=== PATIENT | female | born 1985 | race Caucasian/White ===

== ENCOUNTER → 2016-11-06 | Outpatient (CLI) | payer OTHER ==
[~2016-11-06] MED LIST: ADVIN25/60 INH; CEPH500C PO; CLR10 PO; DILT120T8 PO; EPP3/2 IM; FIBE1CHW PO; JNL12021 PO; MONT1TAB3 PO; PREN0.12 PO
== END | disposition home or self-care (01) ==
LOC: C.PAPS 15:15
PROVIDERS: ATTEND Obstetrics & Gynecology
DX: Z34.81 Encounter for supervision of other normal pregnancy, first trimester (principal)

== ENCOUNTER → 2016-11-07 | Outpatient (CLI) | payer OTHER ==
[2016-11-10 01:58] LABS: CHLAMYDIA TRACH RNA*** NOT DETECTED (NOT DETECTED); GC (NEIS GONORRHOEAE)RNA** NOT DETECTED (NOT DETECTED)
== END | disposition home or self-care (01) ==
LOC: C.LABSPEC 15:04
PROVIDERS: ATTEND Obstetrics & Gynecology
DX: Z34.01 Encounter for supervision of normal first pregnancy, first trimester (principal)

== ENCOUNTER → 2016-11-26 | Outpatient (CLI) | payer OTHER | END | disposition home or self-care (01) | LOC: C.LABSPEC 14:57 | PROVIDERS: ATTEND Obstetrics & Gynecology | DX: O99.511 Diseases of the respiratory system complicating pregnancy, first trimester (principal); J02.9 Acute pharyngitis, unspecified ==

== ENCOUNTER → 2017-01-07 | Outpatient (CLI) | payer OTHER ==
[2017-01-07 12:20] LABS: BASO % 0.2 %; BASO ABS # 0.02 K/uL (0-0.2); COMPLETE YES; HEMATOCRIT 41.4 % (37-47); IG% 0.3 %; LYMPH % 21.3 %; LYMPH ABS # 2.55 K/uL (1.2-3.4); MEAN CELL VOLUME 88.5 fL (80-100); MEAN CORPUSCULAR HEMOGLOBIN 28.8 pg (25-34); MEAN CORPUSCULAR HGB CONC 32.6 g/dl (32-36); MEAN PLATELET VOLUME 8.7 fL (7.4-10.4); NEUT % 72.2 %; PLATELET COUNT 449 K/uL (130-400); RED BLOOD COUNT 4.68 M/uL (4.2-5.4)
[2017-01-07 14:13] LABS: GTGD 50 Grams
[2017-01-09 14:24] LABS: AFP CONCENTRATION 37.8 NG/ML; AFP MULTIPLE OF MEDIAN 1.24; AFPTS INSULIN DEP DIABETIC? NO; AFPTS MATERNAL WT 164 LBS; ALPHA-FETOPROTEIN RACE CAUCASIAN=W; EDD DETERMINED BY ULTRASOUND; ESTRIOL MULTIPLE OF MEDIAN 0.97; HISTORY OF NTD NO; INHIBIN A 137 PG/ML; INHIBIN A MOM 0.83; REPEAT SAMPLE? NO; hCG MULTIPLE OF MEDIAN 0.29
== END | disposition home or self-care (01) ==
LOC: C.LAB 10:24
PROVIDERS: ATTEND Obstetrics & Gynecology
DX: Z34.02 Encounter for supervision of normal first pregnancy, second trimester (principal)

== ENCOUNTER → 2017-01-15 | Outpatient (CLI) | payer OTHER | END | disposition home or self-care (01) | LOC: C.LAB 07:51 | PROVIDERS: ATTEND Obstetrics & Gynecology | DX: O99.810 Abnormal glucose complicating pregnancy (principal) ==

== ENCOUNTER 2017-01-24 00:14 | Emergency (ER) | payer OTHER ==
[~2017-01-24] VITALS: Ht 165.1 cm; Wt 75.0 kg
[~2017-01-24 00:14] MED LIST changes: -CEPH500C PO; -CLR10 PO; -EPP3/2 IM; -FIBE1CHW PO; -PREN0.12 PO
[2017-01-24 00:17] VITALS: TEMP 36.7; Ht 165.1 cm; Wt 75.0 kg
[2017-01-24] MEDS ORDERED: ACETAMINOPHEN 500 MG TAB PO STA (00:30)
[2017-01-24 01:49] VITALS: BP 134/96; PULSE 98; O2SAT 96
--- NOTE | 2017-01-24 02:24 | EMERGENCY ROOM VISIT NOTE ---
History First contact with patient: 00:21 Chief Complaint: LEG PAIN,LEG INJURY Stated Complaint: LEG PAIN IN RIGHT History of Present Illness The patient is a 31 year old female who presents to the Emergency Room with complaints of right thigh pain for the past day who is currently 18 weeks . Patient denies chest pain, dyspnea, Tingling, injury to the area, hip pain, redness, swelling. Patient states her is going well. No history DVT or PE. No recent travel. She does not smoke. Review of Systems See HPI for pertinent positives & negatives. A total of 10 systems reviewed and were otherwise negative. Past Medical/Surgical History None Social History Smoking Status: Never Smoker Smokeless Tobacco Use: No Drug Use: none Marital Status: Housing Status: lives with family Occupation Status: employed Current/Historical Medications Scheduled Diltiazem Hcl (Cardizem), 120 MG PO BID Ethinyl Estradiol/Norethindr (Junel 09/21), 1 TAB PO DAILY Fluticasone Prop/Salmeterol (Advair Diskus 250/50 60 Dose), 1 PUFF INH BID Montelukast Sodium (Singulair), 10 MG PO DAILY Allergies Coded Allergies: Yellow Jacket (Unverified Allergy, Severe, HIVES, 03/08/16) HAS EPI PEN Physical Exam Vital Signs Date Time Temp Pulse Resp B/P Pulse Ox O2 Delivery O2 Flow Rate FiO2 01/24/17 01:49 98 18 134/96 96 Room Air 01/24/17 00:17 36.7 106 20 147/87 99 Room Air Physical Exam VITALS: Vitals are noted on the nurse's note and reviewed by myself. Vital signs stable. GENERAL: Pleasant female, in no acute distress, nondiaphoretic, well-developed well-nourished. SKIN: Capillary reflex less than 2 seconds. HEENT: Normocephalic. PERRLA. EOMI. Nares patent. Mucous membranes moist. Neck is supple without nuchal rigidity. HEART: Regular rate and rhythm without murmurs gallops or rubs. LUNGS: Clear to auscultation bilaterally without wheezes, rales or rhonchi. No retractions or accessory muscle use. ABDOMEN: Positive bowel sounds x 4. Normal tympanic percussion. Soft, nontender, 18 weeks , without masses or organomegaly. Aleman sign negative. No guarding or rebound tenderness. MUSCULOSKELETAL: No gross musculoskeletal defects. No pedal edema. No calf tenderness. Right thigh minimally tender to palpation without redness or edema NEURO: Patient was alert and oriented to person place and time. Normal sensation to light and sharp touch. No focal neurological deficits. Medical Decision & Procedures Medications Administered Medications (Trade) Dose Ordered Sig/Dangelo Route Start Time Stop Time Status Last Admin Dose Admin Acetaminophen (Tylenol Tab) 1,000 mg NOW STAT PO 01/24/17 00:30 01/24/17 00:32 DC 01/24/17 00:35 1,000 MG ED Course Prior records reviewed and summarized above. Triage Nursing notes reviewed. Additional history obtained from the family. The patient's history was concerning for swelling and pain in the leg. Differential diagnosis: Etiologies such as DVT, musculoskeletal, infection, joint effusion, trauma, lymphedema, idiopathic, CHF, as well as others were entertained.. Physical examination: The physical examination revealed no signs of infection. Neurovascularly intact. ER treatment provided: Tylenol On reassessment the patient felt better. Diagnostics interpreted by me: Imaging studies: Ultrasound negative for DVT This appears to be consistent with thigh pain with unclear etiology. This could be muscle strain. Patient was advised to stretch the area out and take Tylenol for the pain. She is advised to follow-up family care in a few days or here in the ER sooner for severe pain, numbness, tingling, chest pain, worsening signs or symptoms or as needed.. By the evaluation outlined above emergent etiologies such as DVT, septic joint, trauma, infection, CHF, as well as others were deemed relatively unlikely. The pt informed about the findings as listed above. All questions were answered and pleased with the treatment. Return instructions were outlined and the patient was discharged in stable condition. Referral: The patient was referred back to their primary care physician for follow-up in 2 to 3 days for a recheck of the current condition. Medical Decision As above Impression Primary Impression: Leg pain, right Departure Information Dispostion Home / Self-Care Condition GOOD Referrals Kieran Sanon M.D. (PCP) Forms HOME CARE DOCUMENTATION FORM, IMPORTANT VISIT INFORMATION Patient Instructions [facility] Additional Instructions Acetaminophen(Tylenol) may be used for fever or pain. Use 1000mg every six hours as needed. Avoid using more than 3000mg in a 24 hour period. Rest and drink plenty of fluids as tolerated. Continue current medications. Avoid strenuous activities and anything that worsens your pain. Try heating pad to the area and stretch the area out. Return to the ER immediately for worsening or persistent leg pain, abdominal pain, vomiting, fevers, chest pains, difficulty breathing, worsening of your condition, or as needed. Follow up with your primary physician in 2-3 days for a recheck of your current condition.
--- NOTE | 2017-01-24 07:18 | DIAGNOSTIC IMAGING REPORT ---
RIGHT LOWER EXTREMITY VENOUS DOPPLER HISTORY: righth thigh pain, ? DVT Right COMPARISON STUDY: None. FINDINGS: There is normal compressibility, flow, and augmentation within the right lower extremity deep venous system. IMPRESSION: No DVT within the right lower extremity Electronically signed by: Stanley Matthews M.D. 01/24/2017 7:17 AM Dictated Date/Time: 01/24/2017 7:17 AM
== END 2017-01-24 02:18 | disposition home or self-care (01) ==
LOC: C.EDB 00:15
DX: O26.892 Other specified pregnancy related conditions, second trimester (principal); M79.651 Pain in right thigh; Z79.899 Other long term (current) drug therapy; Z91.09 Other allergy status, other than to drugs and biological substances

== ENCOUNTER 2017-03-31 15:24 | Emergency (ER) | payer OTHER ==
[~2017-03-31] VITALS: Ht 165.1 cm; Wt 83.9 kg
[2017-03-31 15:28] VITALS: TEMP 36.7; Ht 165.1 cm; Wt 83.9 kg
[2017-03-31] MEDS ORDERED: PREN0.12 PO (15:56)
[2017-03-31] MEDS ORDERED: FIBE1CHW PO (15:56)
[2017-03-31] MEDS ORDERED: CLR10 PO (15:56)
[2017-03-31] MEDS ORDERED: EPP3/2 IM (15:56)
--- NOTE | 2017-03-31 16:10 | DIAGNOSTIC IMAGING REPORT ---
CHEST ONE VIEW PORTABLE CLINICAL HISTORY: SOB, 6 mo Kyle dyspnea COMPARISON STUDY: 12/14/2015 FINDINGS: The bones soft tissues and hemidiaphragms are normal. The cardiomediastinal silhouette is normal. The lungs are clear. The pulmonary vasculature is normal. IMPRESSION: Negative chest. The above report was generated using voice recognition software. It may contain grammatical, syntax or spelling errors. Electronically signed by: Shashank Cervantes M.D. 03/31/2017 4:08 PM Dictated Date/Time: 03/31/2017 4:08 PM
[2017-03-31 16:26] VITALS: O2SAT 96
[2017-03-31 16:36] LABS: HEMATOCRIT 34.6 % (37-47); MEAN CELL VOLUME 86.3 fL (80-100); MEAN CORPUSCULAR HEMOGLOBIN 29.7 pg (25-34); MEAN CORPUSCULAR HGB CONC 34.4 g/dl (32-36); MEAN PLATELET VOLUME 8.4 fL (7.4-10.4); PLATELET COUNT 383 K/uL (130-400); RED BLOOD COUNT 4.01 M/uL (4.2-5.4); WHITE BLOOD COUNT 23.49 K/uL (4.8-10.8)
[2017-03-31 16:42] LABS: URINE APPEARANCE CLOUDY (CLEAR); URINE BILIRUBIN NEG (NEG); URINE COLOR YELLOW; URINE EPITHELIAL CELL AUTO >30 /lpf (0-5); URINE NITRITE NEG (NEG); URINE SPECIFIC GRAVITY 1.015 (1.000-1.030); UROBILINOGEN NEG (NEG)
[2017-03-31 16:48] LABS: MANUAL MICROSCOPIC REQUIRED? NO; REVIEW REQ? YES
[2017-03-31 16:53] LABS: ALT/SGPT 20 U/L (12-78); BLOOD UREA NITROGEN 6 mg/dl (7-18); CALCIUM 8.1 mg/dl (8.5-10.1); CARBON DIOXIDE 24 mmol/L (21-32); CHLORIDE 106 mmol/L (98-107); CREATININE 0.55 mg/dl (0.60-1.20); GLUCOSE 118 mg/dl (70-99); POTASSIUM 3.6 mmol/L (3.5-5.1); SODIUM 140 mmol/L (136-145)
[2017-03-31 16:56] LABS: BASO % 0.1 %; BASO ABS # 0.03 K/uL (0-0.2); COMPLETE YES; EOS % 0.3 %; IG% 0.3 %; LYMPH % 8.3 %; LYMPH ABS # 1.95 K/uL (1.2-3.4); MONO % 3.6 %; NEUT % 87.4 %
[2017-03-31 16:58] LABS: ALB/GLOB RATIO 0.5 (0.9-2); ALKALINE PHOSPHATASE 145 U/L (45-117); AST/SGOT 13 U/L (15-37)
--- NOTE | 2017-03-31 18:08 | DIAGNOSTIC IMAGING REPORT ---
VENOUS DOPPLER LW EXT BILAT HISTORY: Pain. Edema. SOB, LE swelling. 6 mo Kyle COMPARISON STUDY: None. FINDINGS: There is normal compressibility, flow, and augmentation within the bilateral lower extremity deep venous systems. IMPRESSION: No DVT within the right or left lower extremity. The above report was generated using voice recognition software. It may contain grammatical, syntax or spelling errors. Electronically signed by: Shashank Cervantes M.D. 03/31/2017 6:07 PM Dictated Date/Time: 03/31/2017 6:07 PM
--- NOTE | 2017-03-31 18:57 | DIAGNOSTIC IMAGING REPORT ---
(CHEST FOR PE) ANGIO WITH CT DOSE: 320.24 mGy.cm HISTORY: Chest pain dyspnea TECHNIQUE: Multiaxial CT images of the chest were performed following the intravenous administration of contrast to evaluate the pulmonary arteries. Maximal intensity projection images were also obtained. A dose lowering technique was utilized adhering to the principles of ALARA. COMPARISON STUDY: None. FINDINGS: There is a normal caliber thoracic aorta with no evidence for dissection. There is no evidence for pulmonary embolus. No pleural effusions. No pneumothorax. The liver and spleen are unremarkable. No mediastinal or hilar lymphadenopathy. The central airways are patent. The lungs are clear. IMPRESSION: No evidence for pulmonary embolus. The lungs are clear. The above report was generated using voice recognition software. It may contain grammatical, syntax or spelling errors. Electronically signed by: Shashank Cervantes M.D. 03/31/2017 6:56 PM Dictated Date/Time: 03/31/2017 6:55 PM
[2017-03-31] MEDS ORDERED: OPTIRAY 320 IV PRN (19:00)
[2017-03-31] MEDS ORDERED: CEPH500C PO (19:37)
[2017-03-31] MEDS ORDERED: SODIUM CHLORIDE 0.9% 1000ML 1,000 ML IV STA (19:39)
[2017-03-31] MEDS ORDERED: ALBUTEROL HFA 8 GM INHALER INH ONE (19:45)
[2017-03-31] MEDS ORDERED: CEPHALEXIN 500MG HOME PACK 1 EA BTL PO ONE (19:45)
[2017-03-31 19:54] VITALS: BP 128/76; PULSE 89; O2SAT 97
--- NOTE | 2017-03-31 20:52 | EMERGENCY ROOM VISIT NOTE ---
History Report prepared by Korey: Bing Ford Under the Supervision of: Dr. Douglas Ramos M.D. First contact with patient: 15:40 Chief Complaint: RESPIRATORY PROBLEMS Stated Complaint: SHORT OF BREATH,6 MONTHS History of Present Illness The patient is a 32 year old female who presents to the Emergency Room with complaints of persistent respiratory problems for the past 3 to 4 hours. She is accompanied by her . She complains of a cough, sore throat and "raspy" sounding voice that started around noon today. She states her coughing fits can cause her to feel short of breath. A cough drop has provided no relief. The patient is currently 6 months but has experienced no bleeding or fluid leakage. She can still feel the baby moving around. She reports the only daily medication she takes is Claritin for seasonal allergies. The patient notes she was recently around sick infants for a conference, and may have caught something from one of the babies. Pt denies LOC, headache, fevers, chills, diaphoresis, visual changes, neck pain, chest pain, nausea, vomiting, abdominal pain, back pain, melena, hematochezia, urinary symptoms, numbness, weakness, lymphadenopathy, rash, or other complaints. Source of History: patient Onset: 3 to 4 hours [employer] Position: chest Quality: other (respiratory problems) Timing: other (persistent) Modifying Factors (Worsening): other (recent exposure to sick children) Modifying Factors (Relieving): other (cough drop) Associated Symptoms: + sorethroat, + cough, + SOB Review of Systems See HPI for pertinent positives and negatives. A total of ten systems were reviewed and were otherwise negative. Past Medical & Surgical Medical Problems: (1) Seasonal allergies Family History Heart disease Social History Smoking Status: Never Smoker Alcohol Use: occasionally Drug Use: none Marital Status: Housing Status: lives with family Occupation Status: employed Current/Historical Medications Scheduled Cephalexin Monohydrate (Keflex), 500 MG PO QID Fiber (Fiber Select Gummies), 2 TABS PO DAILY Loratadine (Claritin), 10 MG PO DAILY Vit W/ Ferrous Fumara (), 1 TAB PO DAILY Scheduled PRN Epinephrine (Epipen), 0.3 MG IM UD PRN for ALLERGIC REACTION Allergies Coded Allergies: Yellow Jacket (Unverified Allergy, Severe, HIVES, 01/24/17) HAS EPI PEN Diltiazem (Verified Allergy, Intermediate, Hives, 03/31/17) Physical Exam Vital Signs Date Time Temp Pulse Resp B/P (MAP) Pulse Ox O2 Delivery O2 Flow Rate FiO2 03/31/17 19:54 89 128/76 97 Room Air 03/31/17 19:54 89 20 128/76 97 03/31/17 18:35 100 20 128/76 97 Room Air 03/31/17 16:31 97 Room Air 03/31/17 16:26 96 Room Air 03/31/17 16:26 96 Room Air 03/31/17 15:28 36.7 121 22 106/66 96 Room Air Physical Exam GENERAL: Patient is awake, alert, well-appearing, in no distress with a hoarse sounding voice. HENT: Normocephalic, atraumatic. Oropharynx unremarkable. EYES: Normal conjunctiva. Sclera non-icteric. NECK: Supple. No nuchal rigidity. FROM. No JVD. RESPIRATORY: Clear to auscultation. CARDIAC: Tachycardic heart rate, normal rhythm. Extremities warm and well perfused. Pulses equal. ABDOMEN: Gravid abdomen. No tenderness to palpation. No rebound or guarding. No masses. RECTAL: Deferred. MUSCULOSKELETAL: Chest examination reveals no tenderness. The back is symmetrical on inspection without obvious abnormality. There is no CVA tenderness to palpation. No joint edema. LOWER EXTREMITIES: Calves are equal size bilaterally and non-tender. No edema. No discoloration. NEURO: Normal sensorium. No sensory or motor deficits noted. SKIN: No rash or jaundice noted. Medical Decision & Procedures ER Provider Diagnostic Interpretation: Radiology results as stated below per my review and radiologist interpretation: CHEST ONE VIEW PORTABLE CLINICAL HISTORY: SOB, 6 mo Kyle dyspnea COMPARISON STUDY: 12/14/2015 FINDINGS: The bones soft tissues and hemidiaphragms are normal. The cardiomediastinal silhouette is normal. The lungs are clear. The pulmonary vasculature is normal. IMPRESSION: Negative chest. The above report was generated using voice recognition software. It may contain grammatical, syntax or spelling errors. Electronically signed by: Shashank Cervantes M.D. 03/31/2017 4:08 PM VENOUS DOPPLER LW EXT BILAT HISTORY: Pain. Edema. SOB, LE swelling. 6 mo Kyle COMPARISON STUDY: None. FINDINGS: There is normal compressibility, flow, and augmentation within the bilateral lower extremity deep venous systems. IMPRESSION: No DVT within the right or left lower extremity. The above report was generated using voice recognition software. It may contain grammatical, syntax or spelling errors. Electronically signed by: Shashank Cervantes M.D. 03/31/2017 6:07 PM (CHEST FOR PE) ANGIO WITH CT DOSE: 320.24 mGy.cm HISTORY: Chest pain dyspnea TECHNIQUE: Multiaxial CT images of the chest were performed following the intravenous administration of contrast to evaluate the pulmonary arteries. Maximal intensity projection images were also obtained. A dose lowering technique was utilized adhering to the principles of ALARA. COMPARISON STUDY: None. FINDINGS: There is a normal caliber thoracic aorta with no evidence for dissection. There is no evidence for pulmonary embolus. No pleural effusions. No pneumothorax. The liver and spleen are unremarkable. No mediastinal or hilar lymphadenopathy. The central airways are patent. The lungs are clear. IMPRESSION: No evidence for pulmonary embolus. The lungs are clear. The above report was generated using voice recognition software. It may contain grammatical, syntax or spelling errors. Electronically signed by: Shashank Cervantes M.D. 03/31/2017 6:56 PM Laboratory Results 03/31/17 16:20 Red Blood Count 4.01, Mean Corpuscular Volume 86.3, Mean Corpuscular Hemoglobin 29.7, Mean Corpuscular Hemoglobin Concent 34.4, Mean Platelet Volume 8.4, Neutrophils (%) (Auto) 87.4, Lymphocytes (%) (Auto) 8.3, Monocytes (%) (Auto) 3.6, Eosinophils (%) (Auto) 0.3, Basophils (%) (Auto) 0.1, Neutrophils # (Auto) 20.52, Lymphocytes # (Auto) 1.95, Monocytes # (Auto) 0.85, Eosinophils # (Auto) 0.06, Basophils # (Auto) 0.03 03/31/17 16:20 Test 03/31/17 16:20 White Blood Count 23.49 K/uL (4.8-10.8) Red Blood Count 4.01 M/uL (4.2-5.4) Hemoglobin 11.9 g/dL (12.0-16.0) Hematocrit 34.6 % (37-47) Mean Corpuscular Volume 86.3 fL (80-100) Mean Corpuscular Hemoglobin 29.7 pg (25-34) Mean Corpuscular Hemoglobin Concent 34.4 g/dl (32-36) Platelet Count 383 K/uL (130-400) Mean Platelet Volume 8.4 fL (7.4-10.4) Neutrophils (%) (Auto) 87.4 % Lymphocytes (%) (Auto) 8.3 % Monocytes (%) (Auto) 3.6 % Eosinophils (%) (Auto) 0.3 % Basophils (%) (Auto) 0.1 % Neutrophils # (Auto) 20.52 K/uL (1.4-6.5) Lymphocytes # (Auto) 1.95 K/uL (1.2-3.4) Monocytes # (Auto) 0.85 K/uL (0.11-0.59) Eosinophils # (Auto) 0.06 K/uL (0-0.5) Basophils # (Auto) 0.03 K/uL (0-0.2) RDW Standard Deviation 40.9 fL (36.4-46.3) RDW Coefficient of Variation 12.9 % (11.5-14.5) Immature Granulocyte % (Auto) 0.3 % Immature Granulocyte # (Auto) 0.08 K/uL (0.00-0.02) Red Blood Cell Morphology Unremarkable Urine Color YELLOW Urine Appearance CLOUDY (CLEAR) Urine pH 7.0 (4.5-7.5) Urine Specific [place] 1.015 (1.000-1.030) Urine Protein NEG (NEG) Urine Glucose (UA) NEG (NEG) Urine Ketones 2+ (NEG) Urine Occult Blood NEG (NEG) Urine Nitrite NEG (NEG) Urine Bilirubin NEG (NEG) Urine Urobilinogen NEG (NEG) Urine Leukocyte Esterase SMALL (NEG) Urine WBC (Auto) 5-10 /hpf (0-5) Urine RBC (Auto) 0-4 /hpf (0-4) Urine Hyaline Casts (Auto) 1-5 /lpf (0-5) Urine Epithelial Cells (Auto) >30 /lpf (0-5) Urine Bacteria (Auto) 2+ (NEG) Urine Pathogenic Casts /lpf (0) Anion Gap 10.0 mmol/L (3-11) Est Creatinine Clear Calc Drug Dose 158.5 ml/min Estimated GFR () 144.9 Estimated GFR (Non- 125.0 BUN/Creatinine Ratio 10.0 (10-20) Calcium Level 8.1 mg/dl (8.5-10.1) Total Bilirubin 0.3 mg/dl (0.2-1) Aspartate Amino Transf (AST/SGOT) 13 U/L (15-37) Alanine Aminotransferase (ALT/SGPT) 20 U/L (12-78) Alkaline Phosphatase 145 U/L (45-117) Troponin I < 0.015 ng/ml (0-0.045) Pro-B-Type Natriuretic Peptide 147 pg/ml (0-450) Total Protein 6.8 gm/dl (6.4-8.2) Albumin 2.4 gm/dl (3.4-5.0) Globulin 4.4 gm/dl (2.5-4.0) Albumin/Globulin Ratio 0.5 (0.9-2) Laboratory results reviewed by me Medications Administered Medications (Trade) Dose Ordered Sig/Dangelo Route Start Time Stop Time Status Last Admin Dose Admin Cephalexin Monohydrate (Keflex 500MG Home Pack) 1 homepack NOW ONCE PO 03/31/17 19:45 03/31/17 19:46 DC 03/31/17 19:48 1 HOMEPACK Albuterol (Ventolin Hfa Inhaler) 2 puffs NOW ONCE INH 03/31/17 19:45 03/31/17 19:46 DC 03/31/17 19:48 2 PUFFS Sodium Chloride 1,000 ml @ 999 mls/hr Q1H1M STAT IV 03/31/17 19:39 03/31/17 20:39 DC 03/31/17 18:45 999 MLS/HR ECG Indication: SOB/dyspnea Rate (beats per minute): 105 Rhythm: sinus tachycardia Findings: no acute ischemic change, no ectopy ED Course 154: The patient was evaluated in room A2. A complete history and physical exam was performed. 1649: I reevaluated the patient. She is feeling a little better and is on the way to ultrasound. 1814: I reevaluated the patient. She is resting comfortably. I discussed her results so far and my recommendation we do a CT scan of the chest and she verbalized complete understanding and agreement. 1929: I reevaluated the patient. She is feeling much better. I discussed her results and discharge instructions and she verbalized complete understanding and agreement. 193: NSS 1000 ml @ 999 mls/hr IV. 1944: Albuterol 2 puffs INH, Keflex 500 mg 1 homepack PO. Medical Decision Triage Nursing notes reviewed. The patient's presentation and history were concerning for breathing difficulties. Etiologies such as pneumonia, COPD, reactive airway disease, CHF, cardiac ischemia, pulmonary embolism, pneumothorax, musculoskeletal, infections, gastrointestinal, consequence of , as well as others were entertained. The patient was evaluated. She was uncomfortable. She is borderline tachycardic. His ECG was performed and did not reveal any evidence of acute ischemic change, ectopy, or pericarditis. The patient had a chest x-ray performed with shielding. This did not reveal any acute abnormality. Blood work was done as well as urinalysis. The patient had some bacteria on urinalysis. She does note having some decreased urinary flow. The patient had a leukocytosis noted. She has had a leukocytosis on previous blood work however this is significantly higher. It may be due to but it may also be due to the current process. She was under a moderate amount of distress when she arrived. The patient had bilateral lower from the ultrasound performed and there is no evidence of DVT. She underwent CT PE study to rule out pulmonary embolism given the signs and symptoms. This was negative. No pneumonia, pneumothorax, hemothorax, or pulmonary embolism noted. No other pathology noted. The patient does have a moderate cough. Her breathing issues and discomfort improved without significant intervention. She was hydrated. Because of the bacteria I discussed the use of Keflex. I will prescribe an inhaler and she will use Tylenol. She will need close outpatient follow-up. She is doing better and has negative diagnostic testing I feel is reasonable for her to be discharged to follow-up closely. If she worsens in any way she will come back to the Emergency Room for reevaluation. The patient feels very comfortable with this. I gave my usual and customary discussion regarding this issue. By the evaluation outlined above other emergent etiologies such as those listed in the differential, as well as others, were deemed relatively unlikely. The patient was educated about the findings as listed above. All questions were answered and the patient was pleased with the treatment. Return instructions were outlined and the patient was discharged in stable condition. The patient was referred to her PCP and OB for follow-up for a recheck of the current condition. Medication Reconcilliation Current Medication List: was personally reviewed by me Blood Pressure Screening Patient's blood pressure: Normal blood pressure Blood pressure disposition: Did not require urgent referral Impression Primary Impression: Shortness of breath Additional Impressions: Cough Bacteria in urine Second trimester Scribe Attestation The scribe's documentation has been prepared under my direction and personally reviewed by me in its entirety. I confirm that the note above accurately reflects all work, treatment, procedures, and medical decision making performed by me. Departure Information Dispostion Home / Self-Care Prescriptions Cephalexin Monohydrate (Keflex) 500 Mg Cap 500 MG PO QID, #24 CAP Prov: Douglas Ramos MD 03/31/17 Referrals Kieran Sanon M.D. (PCP) Patient Instructions [facility] Additional Instructions Albuterol Inhaler: Take 2 puffs four times daily for five days, then as needed. Cephalexin(Keflex) 500mg: Take one pill four times daily for 7 days for your infection. All antibiotics can cause diarrhea. If this occurs and you feel worse or it does not resolve in 1-2 days follow up with your doctor or return to the Emergency Department as this could be signs of serious underlying problems. Any medication can cause an allergic reaction, stop the pills immediately and return to the ER for rash, hives, breathing difficulties, or swelling. Acetaminophen(Tylenol) may be used for fever or pain. Use 1000mg every six hours as needed. Avoid using more than 4000mg in a 24 hour period. Rest and drink plenty of fluids. Avoid smoke/smoking, fumes, dust, or any triggers in the past that may have affected your breathing. Continue current medications. Return to the ER for chest pain, difficulty breathing, fevers, vomiting, worsening of your condition, or as needed. Follow up with your primary physician and [employer] this week for a recheck of your current condition. Problem Qualifiers
== END 2017-03-31 19:56 | disposition home or self-care (01) ==
LOC: C.EDB 15:27 → C.EDA 19:56
DX: R06.02 Shortness of breath (principal); R05 Cough; R82.71 Bacteriuria; Z34.02 Encounter for supervision of normal first pregnancy, second trimester; J30.2 Other seasonal allergic rhinitis; Z82.49 Family history of ischemic heart disease and other diseases of the circulatory system

== ENCOUNTER → 2017-04-29 | Outpatient (CLI) | payer OTHER ==
[~2017-04-29] MED LIST changes: -ADVIN25/60 INH; +CEPH500C PO; +CLR10 PO; -DILT120T8 PO; +EPP3/2 IM; +FIBE1CHW PO; -JNL12021 PO; -MONT1TAB3 PO; +PREN0.12 PO
== END | disposition home or self-care (01) ==
LOC: C.LABSPEC 14:01
PROVIDERS: ATTEND Obstetrics & Gynecology
DX: J02.9 Acute pharyngitis, unspecified (principal); O99.513 Diseases of the respiratory system complicating pregnancy, third trimester; Z3A.00 Weeks of gestation of pregnancy not specified

== ENCOUNTER → 2017-05-27 | Outpatient (CLI) | payer OTHER | END | disposition home or self-care (01) | LOC: C.LABSPEC 14:07 | PROVIDERS: ATTEND Obstetrics & Gynecology | DX: Z34.03 Encounter for supervision of normal first pregnancy, third trimester (principal) ==

== ENCOUNTER 2017-06-04 19:11 | Inpatient (IN) | payer OTHER ==
[~2017-06-04] VITALS: Ht 165.1 cm; Wt 90.9 kg
[2017-06-04 19:54] VITALS: Ht 165.1 cm; Wt 90.9 kg
[2017-06-04] MEDS ORDERED: LACTATED RINGER'S 1000ML 1,000 ML IV PRN (20:39)
[2017-06-04] MEDS ORDERED: MISOPROSTOLTAB 50 MCG TAB PO ONE (20:45)
[2017-06-04 20:59] LABS: HEMATOCRIT 39.1 % (37-47); MEAN CELL VOLUME 83.2 fL (80-100); MEAN CORPUSCULAR HEMOGLOBIN 27.2 pg (25-34); MEAN CORPUSCULAR HGB CONC 32.7 g/dl (32-36); MEAN PLATELET VOLUME 8.7 fL (7.4-10.4); PLATELET COUNT 403 K/uL (130-400); WHITE BLOOD COUNT 13.31 K/uL (4.8-10.8)
[2017-06-05] MEDS ORDERED: NURSING VERBAL MED ORDER ONE (02:45)
[2017-06-05] MEDS ORDERED: DINOPROSTONE 10 MG INSERT PV STA (02:54)
[2017-06-05] MEDS ORDERED: MISOPROSTOLTAB 50 MCG TAB PO ONE (15:30)
[2017-06-05] MEDS ORDERED: LACTATED RINGER'S 1000ML 500 ML IV PRN (20:25)
[2017-06-05] MEDS ORDERED: OXYTOCIN 30 UNITS/500ML NSS IV PRN (20:30)
[2017-06-05] MEDS: LACTATED RINGER'S 1000ML 1,000 ML IV SCH (21:05)
[2017-06-06] VITALS (12 sets, daily range): BP systolic 119–131; BP diastolic 78–82; PULSE 94–114; TEMP 37–37.5; O2SAT 97–100
[2017-06-06] MEDS ORDERED: BUPIVACAINE 0.25% 30 ML VIAL ONE (02:01)
[2017-06-06] MEDS ORDERED: EpHEDrine SULFATE INJ 50 MG/ML AMP ONE (02:02)
[2017-06-06] MEDS ORDERED: FENTANYL CITRATE INJ 50 MCG/1 ML 2 ML VIAL ONE ×3 (02:02→06:58)
[2017-06-06] MEDS ORDERED: FENTANYL 2MCG/ML ROPIV 1.25MG/ML 100ML BAG EPI ONE (02:02)
[2017-06-06] MEDS: LACTATED RINGER'S 1000ML 1,000 ML IV SCH (02:22)
[2017-06-06] MEDS ORDERED: LACTATED RINGER'S 1000ML 500 ML IV PRN ×2 (03:08→07:24)
[2017-06-06] MEDS ORDERED: NALOXONE HCL INJ 1 MG in SODIUM CHLORIDE 0.9% 1000ML 1,000 ML IV PRN ×2 (03:08→07:24)
[2017-06-06] MEDS ORDERED: FENTANYL 2MCG/ML ROPIV 1.25MG/ML 100ML BAG EPI PRN (03:15)
[2017-06-06] MEDS ORDERED: NALOXONE HCL INJ 0.4 MG/1 ML VIAL/CARP IV PRN (03:15)
[2017-06-06] MEDS ORDERED: EpHEDrine SULFATE INJ 50 MG/ML AMP IV PRN ×3 (03:15→07:30)
[2017-06-06] MEDS ORDERED: DiphenhydrAMINE HCL 50 MG/ML VIAL IV PRN ×3 (03:15→07:30)
[2017-06-06] MEDS ORDERED: NALBUPHINE HCL INJ 10 MG/ML AMP IV PRN ×2 (03:15→07:30)
[2017-06-06] MEDS ORDERED: LACTATED RINGER'S 1000ML 1,000 ML IV SCH (05:51)
[2017-06-06] MEDS ORDERED: CITRIC ACID/SODIUM CITRATE 15 ML UDC ONE (05:54)
[2017-06-06] MEDS ORDERED: CITRIC ACID/SODIUM CITRATE 15 ML UDC PO ONE (06:00)
[2017-06-06] MEDS ORDERED: CEFOXITIN IV 2,000 MG in DEXTROSE 5% 50ML 50 ML IV SCH (06:00)
[2017-06-06] MEDS ORDERED: LIDOCAINE/EPINEPHRINE 2% 1:200,000 20 ML SDV ONE (06:00)
[2017-06-06] MEDS ORDERED: OXYTOCIN INJ 10 UNITS/ML VIAL ONE (06:15)
--- NOTE | 2017-06-06 06:38 | HISTORY & PHYSICAL EXAMINATION ---
DATE OF ADMISSION: 06/06/2017 CHIEF COMPLAINT: Toxemia. Non-reassuring heart rate tracing. HISTORY OF PRESENT ILLNESS: The patient is a 32-year-old 1, para 0. Her due date is 06/24/2017. She was brought in for induction on 06/04/2017 due to toxemia of . She had 2 recorded diastolics in the office on 2 different days of 180 mmHg and she also had some trace protein. She was brought in for induction. Induction was done with Cervidil tapes and also with p.o. Cytotec eventually, she went to full dilatation on IV Pitocin and the head arrested at about a -1 station in an occiput transverse position. She began to develop persistent tachycardia in the 180s with the lack of variability. We tried giving her mask oxygen, repositioning her and shutting off the Pitocin. We are unable to correct the tachycardia and pushing multani, it was anticipated that she would require at least another 2 hours of pushing to possibly deliver the infant. Suction was called due to arrest of labor and the non-reassuring heart rate tracing. PAST MEDICAL HISTORY: She has had wisdom teeth removed, breast biopsies, two moles removed. ALLERGIES: SHE IS ALLERGIC TO A CARDIAC BETA ROMEO WITH WHICH SHE GETS HIVES. MEDICAL HISTORY: She has had tachycardia of uncertain etiology, treated with a beta-romeo. The condition resolved on its own. SOCIAL HISTORY: No smoking. No excessive alcohol intake. 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 FAMILY HISTORY: Mom 62, in good health. Father 61, in good health, 1 brother and 1 sister in good health. REVIEW OF SYSTEMS: No symptoms of frequent or severe headaches, ear infections, nosebleed, sore throats, kidney or bladder infection. She did have a persistent tachycardia which resolved on its own. PHYSICAL EXAMINATION: GENERAL: Well developed, well-nourished 32-year-old white female, alert, oriented x3 and cooperative, in no acute distress, appears stated age. EYES: Conjunctivae are pink, sclerae white, no evidence of jaundice. EARS: Had normal light reflex bilaterally. NOSE: Had normal mucosa. Septum is midline. There were no polyps. THROAT: No erythema or evidence of infection. Teeth are in good state of repair. HEAD: Normocephalic, normal distribution of hair. NECK: Supple. Trachea midline. Thyroid is not enlarged. There is no adenopathy appreciated. Both carotids are of good intensity. CHEST: Clear to auscultation and percussion. No wheezes, rales or rhonchi appreciated. HEART: Had regular rhythm. S1 and S2 are normal. BREASTS: Normal. ABDOMEN: Soft and nontender. Estimated weight 8 pounds. PELVIC: Large amount of molding, right occiput transverse position, -1 station. MUSCULOSKELETAL: Revealed no calf tenderness. IMPRESSIONS OF THIS CASE: Toxemia non-reassuring heart rate tracing and arrest of labor, secondary to cephalopelvic disproportion. MTDD
[2017-06-06] MEDS ORDERED: OXYTOCIN INJ 10 UNITS/ML VIAL INJ ONE (06:45)
[2017-06-06] MEDS ORDERED: MORPHINE SULFATE PF 2MG/2ML SYR ONE (06:59)
[2017-06-06] MEDS ORDERED: PHENYLEPHRINE HCL INJ 10 MG/ML VIAL ONE (06:59)
[2017-06-06] MEDS ORDERED: MAGNESIUM HYDROXIDE SUSP 30 ML UDC PO PRN (07:15)
[2017-06-06] MEDS ORDERED: SENNA 8.6 MG TAB PO PRN (07:15)
[2017-06-06] MEDS ORDERED: DIPHTHERIA/TETANUS/PERTUSSIS 0.5 ML SYR/VIAL IM. ONE (07:15)
[2017-06-06] MEDS ORDERED: LANOLIN OINT EXT PRN ×2 (07:15)
[2017-06-06] MEDS ORDERED: SUPERCREAM 0.870 % 15GM JAR EXT PRN (07:15)
[2017-06-06] MEDS ORDERED: BENZOCAINE 20% AER SPR 82.5 GM CAN EXT PRN (07:15)
[2017-06-06] MEDS ORDERED: HYDROCORTISONE ACETATE 25 MG SUPP PR PRN (07:15)
--- NOTE | 2017-06-06 07:23 | Anesthesia Procedure Note ---
Anesthesia Epidural Removal Nt Date & Time Jun 06, 2017 at 07:23 Notes Mental Status: alert / awake / arousable, participated in evaluation Nausea / Vomiting: adequately controlled Pain: adequately controlled Airway Patency, RR, SpO2: stable & adequate BP & HR: stable & adequate Hydration State: stable & adequate Neuraxial Anesthesia: was administered Anesthetic Complications: no major complications apparent, pt satisfied with anesthetic care Epidural: removed without complications, with tip intact
[2017-06-06] MEDS ORDERED: SODIUM CHLORIDE 0.9% 1000ML 1,000 ML IV PRN (07:24)
[2017-06-06] MEDS ORDERED: NALOXONE HCL INJ 0.08 MG in SYRINGE 1.8 ML IV PRN (07:24)
[2017-06-06] MEDS ORDERED: MoRPHine SULFATE 2 MG/ML CARP IV PRN (07:30)
[2017-06-06] MEDS ORDERED: ATROPINE SULFATE 0.1 MG/ML 5ML SYR IV PRN (07:30)
[2017-06-06] MEDS ORDERED: LABETALOL HCL IV 5 MG/ML 20ML IV PRN (07:30)
[2017-06-06] MEDS ORDERED: NO NARCOTICS OR SEDATIVES SCH (07:30)
[2017-06-06] MEDS ORDERED: MEPERIDINE HCL 25 MG/ML CARP IV PRN ×2 (07:30)
[2017-06-06] MEDS ORDERED: NALOXONE HCL 0.4 MG/1 ML VIAL/CARP IV PRN (07:30)
[2017-06-06] MEDS ORDERED: ONDANSETRON INJ 2 MG/ML 2 ML VIAL IV PRN ×2 (07:30)
[2017-06-06] MEDS ORDERED: MoRPHine SULFATE PF 1 MG/ML 10 ML AMP/VIAL EPI PRN (07:30)
[2017-06-06] MEDS ORDERED: HYDROmorphone INJ 1 MG/ML SYR IV PRN (07:30)
[2017-06-06] MEDS ORDERED: FENTANYL CITRATE INJ 50 MCG/1 ML 2 ML VIAL IV PRN (07:30)
[2017-06-06] MEDS ORDERED: KETOROLAC TROMETHAMINE 30 MG/ML VIAL IV. PRN (07:30)
--- NOTE | 2017-06-06 07:40 | OPERATIVE REPORT ---
DATE OF OPERATION: 06/06/2017 INDICATIONS FOR SURGERY: Nonreassuring heart rate tracing, arrest of labor. PREOPERATIVE DIAGNOSIS: Toxemia, nonreassuring heart rate tracing. POSTOPERATIVE DIAGNOSES: Same, delivered a live female infant direct occiput posterior. PROCEDURE: Primary low segment section. SURGEON: Dr. Sanon. CERTIFIED PERSONAL CHEF: Dr. Parsons. ESTIMATED BLOOD LOSS: 600 mL. ANESTHESIA: Epidural. OPERATIVE FINDINGS AND PROCEDURE: The patient was brought to the OR table, correctly identified by armband and conversation. Compression stockings had been applied. A Pham catheter had been inserted aseptically in the bladder connected to gravity drainage, suprapubic area had been prepped and antacids had been given. With IV antibiotics running the epidural was topped off. The lower abdomen was prepped with an alcohol based sterilizing solution, draped in usual sterile fashion. Pfannenstiel incision was made, carried down to the anterior fascia by sharp dissection. Hemostasis was secured by electrocauterization. Fascia was incised transversely from the underlying muscle by blunt and sharp dissection. Recti muscles were in the midline exposing the peritoneum which was carefully raised and entered. Incision was made above the vesicouterine fold. Bladder was undermined bluntly and pushed out of the operative field. It was held out of the operative field with a bladder retractor. Lower uterine segment was scored with a knife and then entered with the scissors. A light meconium fluid was noted at this time. The incision was then extended laterally. The head was in direct occiput posterior position looking right up and it was also wedged into the pelvis. I had to switch sides and use my right hand to dislodge the head and bring it out through the incision, then the infant was suctioned through the mouth and the nose. Cord was clamped and cut and the was attended by the oil furnace installer, Dr. Flor who was present and scrubbed at the time of delivery. Cord blood was taken. With IV Pitocin running, the placenta was removed manually. Uterus, tubes, and ovaries were brought out through the incision. Dry sponge was used to wipe out the uterine cavity. Ten units of Pitocin was injected into the uterus. The myometrium was then approximated in 2 layers, a deep layer was approximated with a running heavy chromic and then a horizontal suture of heavy Vicryl was used to approximate the fascial layer over the muscular layer and then several interrupted [id number] sutures of heavy Vicryl was used to complete the approximation and create good hemostasis. Following this, the bladder edges were approximated with a running 3-0 chromic. The pelvis was cleansed of all blood clots and debris. Uterus, tubes, and ovaries were reinserted into the abdominal cavity and careful anatomical approximation of the anterior abdominal wall was performed. Peritoneum was closed with a mattress suture of chromic catgut. Recti muscles were approximated with interrupted [id number] suture of chromic catgut. The fascia was closed with continuous interlocking suture of Vicryl on each side, tied in the midline. SubQ was approximated with a running plain. The skin edges were approximated with staple clips. I attest to the content of the Intraoperative Record and any orders documented therein. Any exception s are noted below.
[2017-06-06] MEDS: PRENATAL VITAMIN TAB PO SCH (08:00)
[2017-06-06] MEDS: DOCUSATE SODIUM 100 MG CAP PO SCH ×2 (08:00→19:51)
[2017-06-06] MEDS: FERROUS SULFATE 325 MG TAB PO SCH (08:00)
[2017-06-06] MEDS: OXYTOCIN INJ 20 UNITS in LACTATED RINGER'S 1000ML 1,000 ML IV SCH ×3 (08:09→23:59)
--- NOTE | 2017-06-06 08:39 | Anesthesiology Progress Note ---
Anesthesia Post Op Note Date & Time Jun 06, 2017 at 08:38 Notes Mental Status: alert / awake / arousable, participated in evaluation Pt Amnestic to Procedure: Yes Nausea / Vomiting: adequately controlled Pain: adequately controlled Airway Patency, RR, SpO2: stable & adequate BP & HR: stable & adequate Hydration State: stable & adequate Neuraxial Anesthesia: was administered, sensory block is resolving Anesthetic Complications: no major complications apparent
[2017-06-06] MEDS: SIMETHICONE 80 MG CHEW PO SCH ×4 (09:00→19:51)
[2017-06-07] MEDS ORDERED: DC INTRASPINAL MORPHINE SCH (01:00)
[2017-06-07] MEDS ORDERED: ZOLPIDEM TARTRATE 5 MG TAB PO PRN (01:01)
[2017-06-07] MEDS ORDERED: KETOROLAC TROMETHAMINE 30 MG/ML VIAL IV. PRN (01:01)
[2017-06-07] MEDS ORDERED: OXYCODONE/ACETAMINOPHEN 5-325 TAB PO PRN (01:01)
[2017-06-07] MEDS ORDERED: DiphenhydrAMINE HCL 50 MG/ML VIAL IV PRN (01:01)
[2017-06-07] MEDS ORDERED: MEPERIDINE HCL 50 MG/ML CARP IV PRN ×2 (01:01)
[2017-06-07] MEDS ORDERED: ONDANSETRON INJ 2 MG/ML 2 ML VIAL IV PRN (01:01)
[2017-06-07 04:50] VITALS: BP 113/74; PULSE 105; TEMP 36.9; O2SAT 99
[2017-06-07] MEDS: IBUPROFEN 600 MG TAB PO PRN ×4 (05:28→23:27)
[2017-06-07] MEDS: OXYCODONE/ACETAMINOPHEN 5-325 TAB PO PRN ×3 (05:29→16:20)
[2017-06-07 07:10] LABS: HEMATOCRIT 33.8 % (37-47); MEAN CELL VOLUME 82.8 fL (80-100); MEAN CORPUSCULAR HEMOGLOBIN 27.7 pg (25-34); MEAN CORPUSCULAR HGB CONC 33.4 g/dl (32-36); MEAN PLATELET VOLUME 8.6 fL (7.4-10.4); PLATELET COUNT 328 K/uL (130-400); RED BLOOD COUNT 4.08 M/uL (4.2-5.4); WHITE BLOOD COUNT 26.57 K/uL (4.8-10.8)
[2017-06-07] MEDS: SIMETHICONE 80 MG CHEW PO SCH ×3 (07:34→19:50)
[2017-06-07] MEDS: PRENATAL VITAMIN TAB PO SCH (07:34)
[2017-06-07] MEDS: DOCUSATE SODIUM 100 MG CAP PO SCH ×2 (07:35→19:50)
[2017-06-07] MEDS: FERROUS SULFATE 325 MG TAB PO SCH (07:35)
[2017-06-07] MEDS: LORATADINE 10 MG TAB PO SCH (07:35)
[2017-06-07 07:50] VITALS: BP 114/79; PULSE 99; TEMP 36.8; O2SAT 98
[2017-06-07 07:58] LABS: BASO % 0.1 %; BASO ABS # 0.03 K/uL (0-0.2); COMPLETE YES; EOS % 0.7 %; IG% 0.5 %; LYMPH % 10.4 %; LYMPH ABS # 2.76 K/uL (1.2-3.4); MONO % 5.8 %; NEUT % 82.5 %; VACUOLIZATION 1+
--- NOTE | 2017-06-07 11:32 | Progress Note ---
Subjective Jun 07, 2017. Subjective conversation w/ patient Ambulation: ambulating normally Voiding: no voiding problems Passing Gas: No Diet Tolerance: Clear Liquids Lochia: Small Feeding Type: Breast Feeding Review of Systems Constitutional: + fever Objective Vital Signs Date Time Temp Pulse Resp B/P (MAP) Pulse Ox O2 Delivery O2 Flow Rate FiO2 06/07/17 07:50 36.8 99 16 114/79 (91) 98 Room Air 06/07/17 07:50 Room Air 06/07/17 04:50 36.9 105 18 113/74 (87) 99 Room Air 06/06/17 23:30 37.5 114 18 122/79 (93) 98 Room Air 06/06/17 23:30 Room Air 06/06/17 23:30 18 98 06/06/17 19:35 37.0 114 18 125/78 (94) 98 Room Air 06/06/17 19:35 Room Air 06/06/17 19:35 18 98 06/06/17 18:30 18 98 06/06/17 17:30 18 97 06/06/17 16:30 20 98 06/06/17 15:30 20 99 06/06/17 15:30 Room Air 06/06/17 14:30 18 98 06/06/17 13:30 18 99 06/06/17 12:30 18 99 06/06/17 12:30 37.2 94 20 119/78 (92) Room Air 06/06/17 12:14 20 97 Physical Exam General Appearance: WELL-APPEARING Respiratory/Chest: lungs clear Abdomen: non tender, + abnormal bowel sounds Fundus: Firm, Non-Tender Incision Description: Clean, Dry & Intact Extremities: no pedal edema, no calf tenderness Laboratory Results Last 24 Hours Test 06/07/17 06:59 White Blood Count 26.57 K/uL Red Blood Count 4.08 M/uL Hemoglobin 11.3 g/dL Hematocrit 33.8 % Mean Corpuscular Volume 82.8 fL Mean Corpuscular Hemoglobin 27.7 pg Mean Corpuscular Hemoglobin Concent 33.4 g/dl Platelet Count 328 K/uL Mean Platelet Volume 8.6 fL Neutrophils (%) (Auto) 82.5 % Lymphocytes (%) (Auto) 10.4 % Monocytes (%) (Auto) 5.8 % Eosinophils (%) (Auto) 0.7 % Basophils (%) (Auto) 0.1 % Neutrophils # (Auto) 21.91 K/uL Lymphocytes # (Auto) 2.76 K/uL Monocytes # (Auto) 1.55 K/uL Eosinophils # (Auto) 0.19 K/uL Basophils # (Auto) 0.03 K/uL RDW Standard Deviation 41.3 fL RDW Coefficient of Variation 13.7 % Immature Granulocyte % (Auto) 0.5 % Immature Granulocyte # (Auto) 0.13 K/uL Toxic Vacuolation 1+ Assessment and Plan Problem List Medical Problems: (1) Bacteria in urine Status: Acute (2) Cough Status: Acute (3) Leg pain, right Status: Acute (4) Ovarian cyst Status: Acute (5) Second trimester Status: Acute (6) Shortness of breath Status: Acute Post-Op Day#: 1 Continue Routine Care: hypoactive bowel sounds
[2017-06-07 16:30] VITALS: BP 126/85; PULSE 116; TEMP 37; O2SAT 97
[2017-06-07] MEDS ORDERED: BISACODYL 5 MG TABEC PO ONE (22:00)
[2017-06-07 23:30] VITALS: BP 129/86; PULSE 105; TEMP 36.8
[2017-06-08] MEDS: IBUPROFEN 600 MG TAB PO PRN ×3 (06:18→20:19)
[2017-06-08] MEDS: OXYCODONE/ACETAMINOPHEN 5-325 TAB PO PRN ×3 (06:18→21:29)
[2017-06-08] MEDS ORDERED: BISACODYL 10 MG SUPP PR PRN (07:00)
--- NOTE | 2017-06-08 08:31 | Progress Note ---
Subjective Jun 08, 2017. Subjective conversation w/ patient Ambulation: ambulating normally Voiding: no voiding problems Passing Gas: Yes Diet Tolerance: Regular Diet Lochia: Small Feeding Type: Breast Feeding Review of Systems Constitutional: + fever Objective Vital Signs Date Time Temp Pulse Resp B/P (MAP) Pulse Ox O2 Delivery O2 Flow Rate FiO2 06/07/17 23:30 36.8 105 18 129/86 (100) 06/07/17 23:30 Room Air 06/07/17 16:30 37.0 116 16 126/85 (99) 97 Room Air 06/07/17 16:30 97 Room Air Physical Exam General Appearance: WELL-APPEARING Respiratory/Chest: lungs clear Abdomen: normal bowel sounds, non tender Fundus: Firm, Non-Tender Incision Description: Clean, Dry & Intact Extremities: no pedal edema, no calf tenderness Assessment and Plan Problem List Medical Problems: (1) Bacteria in urine Status: Acute (2) Cough Status: Acute (3) Leg pain, right Status: Acute (4) Ovarian cyst Status: Acute (5) Second trimester Status: Acute (6) Shortness of breath Status: Acute Post-Op Day#: 2
[2017-06-08] MEDS: FERROUS SULFATE 325 MG TAB PO SCH (08:47)
[2017-06-08] MEDS: DOCUSATE SODIUM 100 MG CAP PO SCH ×2 (08:47→20:18)
[2017-06-08] MEDS: SIMETHICONE 80 MG CHEW PO SCH ×4 (08:48→20:18)
[2017-06-08] MEDS: LORATADINE 10 MG TAB PO SCH (08:48)
[2017-06-08] MEDS: PRENATAL VITAMIN TAB PO SCH (08:48)
[2017-06-08 08:50] VITALS: BP 142/93; PULSE 107; TEMP 37.4; O2SAT 97
[2017-06-08 15:40] VITALS: O2SAT 98
[2017-06-09 00:25] VITALS: BP 125/85; PULSE 89; TEMP 36.9
[2017-06-09] MEDS: IBUPROFEN 600 MG TAB PO PRN ×3 (04:47→14:06)
[2017-06-09] MEDS: OXYCODONE/ACETAMINOPHEN 5-325 TAB PO PRN (04:48)
[2017-06-09 09:30] VITALS: BP 138/74; PULSE 72; TEMP 36.8; O2SAT 99
[2017-06-09] MEDS: DOCUSATE SODIUM 100 MG CAP PO SCH (09:31)
[2017-06-09] MEDS: FERROUS SULFATE 325 MG TAB PO SCH (09:31)
[2017-06-09] MEDS: PRENATAL VITAMIN TAB PO SCH (09:31)
[2017-06-09] MEDS: LORATADINE 10 MG TAB PO SCH (09:31)
[2017-06-09] MEDS: SIMETHICONE 80 MG CHEW PO SCH ×2 (09:32→14:06)
--- NOTE | 2017-06-09 12:01 | Progress Note ---
Subjective Jun 09, 2017. Subjective conversation w/ patient Ambulation: ambulating normally Voiding: no voiding problems Passing Gas: Yes Diet Tolerance: Regular Diet Lochia: Small Feeding Type: Breast Feeding Review of Systems Constitutional: + fever Objective Vital Signs Date Time Temp Pulse Resp B/P (MAP) Pulse Ox O2 Delivery O2 Flow Rate FiO2 06/09/17 09:30 Room Air 06/09/17 09:30 36.8 72 16 138/74 (95) 99 Room Air 06/09/17 00:25 Room Air 06/09/17 00:25 36.9 89 18 125/85 (98) Room Air 06/08/17 15:40 98 Room Air Physical Exam General Appearance: WELL-APPEARING Respiratory/Chest: lungs clear Abdomen: normal bowel sounds, non tender Fundus: Firm, Non-Tender Incision Description: Clean, Dry & Intact Extremities: no pedal edema, no calf tenderness Assessment and Plan Problem List Medical Problems: (1) Bacteria in urine Status: Acute (2) Cough Status: Acute (3) Leg pain, right Status: Acute (4) Ovarian cyst Status: Acute (5) Second trimester Status: Acute (6) Shortness of breath Status: Acute Post-Op Day#: 3
--- NOTE | 2017-06-09 12:04 | Discharge Instructions ---
Discharge Instructions Date of Service Jun 09, 2017. Admission Reason for Admission: Induction Discharge Discharge Diagnosis / Problem: toxemia Discharge Goals Goal(s): Routine recovery after Activity Recommendations Activity Limitations: as noted below ACTIVITY RECOMMENDATIONS: * Gradual return to full activity over the next 2-3 weeks. * No lifting - nothing heavier than baby over the next 2-3 weeks. * Do not engage in vigorous exercise, sexual activity or sports for 6 weeks. * Do not drive or operate any motorized equipment for 14 days. * You may shower/bathe daily. DIET: Resume Previous Diet If Breast-feeding: * Increase caloric intake by 500 calories, eat 3 well balanced meals, 2 high protein snacks a day and drink 6-8 8oz. glasses of fluid per day. BREAST CARE: If you are not breast feeding: * Wear a supportive bra 24 hours a day for one to two weeks. * Avoid stimulating your breasts and nipples as much as possible during the first few weeks after delivery. * When taking a shower, have the warm water hit your back, not breasts. * When your breasts feel full, apply ice packs. Usually three to four times a day helps ease the discomfort. * Take a mild pain medication (Tylenol / Motrin) when you are uncomfortable. If breast feeding: * Use breast milk to lubricate nipples. Lansinoh cream may be used for sore nipples. You do not need to remove cream prior to breast feeding. If using a different brand of cream, check the label for directions regarding removal of cream prior to nursing. * Wear a supportive bra. * If having problems with breasts or breast feeding, call a employee relations consultant or your health care provider. VITAMINS: * One tablet daily. Continue taking while or until you have your check up in 6 weeks. SPECIAL CARE INSTRUCTIONS: * Vaginal rest (no tampons, douching, intercourse) until after doctor's visit. * control as discussed with doctor. * Verbalizes understanding of car seat law as reviewed with patient by nursing. * Car Seat hand-out given and reviewed with patient by nursing. * Shaken baby information reviewed with patient by nursing. Call you doctor if: * Heavy bleeding (saturating a pad an hour) or passing clots the size of your fist. Bleeding has a foul smelling odor. * A fever greater than 100.4 degrees F (38 degrees C) on two occasions four hours apart and/or chills. * Unusual pain in the pelvic or vaginal areas. Pain should improve each day . * Call the doctor for any increased redness, drainage or swelling around the incision and any pain unrelieved by prescribed pain medication. * Signs and symptoms of phlebitis(possible blood clots forming in the veins): leg pain, warm, red or swollen area on leg. * "Baby Blues" lasting longer than two weeks. If you have any questions or concerns, call your health care practitioner at [phone]. FOLLOW-UP VISIT: Follow-up visit for examination in 6 weeks. Incision check (staple removal) in 1 week. Please call office at [phone] if not already scheduled. . Instructions / Follow-Up Instructions / Follow-Up ACTIVITY RECOMMENDATIONS: * Gradual return to full activity over the next 2-3 weeks. * No lifting - nothing heavier than baby over the next 2-3 weeks. * Do not engage in vigorous exercise, sexual activity or sports for 6 weeks. * Do not drive or operate any motorized equipment for 14 days. * You may shower/bathe daily. DIET: Resume Previous Diet If Breast-feeding: * Increase caloric intake by 500 calories, eat 3 well balanced meals, 2 high protein snacks a day and drink 6-8 8oz. glasses of fluid per day. BREAST CARE: If you are not breast feeding: * Wear a supportive bra 24 hours a day for one to two weeks. * Avoid stimulating your breasts and nipples as much as possible during the first few weeks after delivery. * When taking a shower, have the warm water hit your back, not breasts. * When your breasts feel full, apply ice packs. Usually three to four times a day helps ease the discomfort. * Take a mild pain medication (Tylenol / Motrin) when you are uncomfortable. If breast feeding: * Use breast milk to lubricate nipples. Lansinoh cream may be used for sore nipples. You do not need to remove cream prior to breast feeding. If using a different brand of cream, check the label for directions regarding removal of cream prior to nursing. * Wear a supportive bra. * If having problems with breasts or breast feeding, call a employee relations consultant or your health care provider. VITAMINS: * One tablet daily. Continue taking while or until you have your check up in 6 weeks. SPECIAL CARE INSTRUCTIONS: * Vaginal rest (no tampons, douching, intercourse) until after doctor's visit. * control as discussed with doctor. * Verbalizes understanding of car seat law as reviewed with patient by nursing. * Car Seat hand-out given and reviewed with patient by nursing. * Shaken baby information reviewed with patient by nursing. Call you doctor if: * Heavy bleeding (saturating a pad an hour) or passing clots the size of your fist. Bleeding has a foul smelling odor. * A fever greater than 100.4 degrees F (38 degrees C) on two occasions four hours apart and/or chills. * Unusual pain in the pelvic or vaginal areas. Pain should improve each day . * Call the doctor for any increased redness, drainage or swelling around the incision and any pain unrelieved by prescribed pain medication. * Signs and symptoms of phlebitis(possible blood clots forming in the veins): leg pain, warm, red or swollen area on leg. * "Baby Blues" lasting longer than two weeks. If you have any questions or concerns, call your health care practitioner at [phone]. FOLLOW-UP VISIT: Follow-up visit for examination in 6 weeks. Incision check (staple removal) in 1 week. Please call office at [phone] if not already scheduled. Current Hospital Diet Patient's current hospital diet: Regular OB Diet Discharge Diet Recommended Diet: Regular Diet Procedures Procedures Performed: section in operating room Pending Studies Studies pending at discharge: no Medical Emergencies . Who to Call and When: Medical Emergencies: If at any time you feel your situation is an emergency, please call 911 immediately. . Non-Emergent Contact Non-Emergency issues call your: Nursery Teacher Call Non-Emergent contact if: temperature is above 100.5 . . "Provider Documentation" section prepared by Kieran Sanon. . VTE Core Measure Inpt VTE Proph given/why not?: Treatment not indicated
--- NOTE | 2017-06-09 12:35 | DISCHARGE SUMMARY ---
Mrs. Trujillo was brought in at 37+ weeks gestation after diagnosis of toxemia through the office. She had diastolics over 100 on 2 separate office visits, by about 48 hours and this was despite the bed rest and salt restrictions. She was brought in with the diagnosis of toxemia and an induction was attempted with p.o. Cytotec. Eventually, she became fully dilated. She had an epidural in place. She was on Pitocin. She had good regular contractions. She went to full dilatation and started to push. However, she began to develop persistent tachycardia with loss of variability. This was present really about an hour prior to delivery. Also at that time, the station of the head was high at about -1 and there was not much noticeable movement when she pushed indicating that a vaginal delivery was not eminent and so, she underwent low segment section. At the time of , she had a direct OP. Infant was delivered and had good Apgars. Her preoperative hemoglobin was 12.8 and hematocrit 39.1. Postoperatively, the hemoglobin was 11.3 and hematocrit 33.8. Postoperatively, she did well. She remained afebrile. Bowel sounds returned promptly and at the time of discharge, she was ambulating well, eating well and pain was controlled with a combination of Percocet and Motrin. She was given prescriptions for these medications and told to return to the office in about 5 days for removal of pat and to call if she had a temperature over 100 or any heavy bleeding.
[2017-06-09 14:30] VITALS: BP_DIAS 74; PULSE 72; TEMP 36.8
== END 2017-06-09 14:30 | disposition home or self-care (01) | DRG 766 ==
LOC: C.LD 19:11 → C.OBG 06-06 10:26
PROVIDERS: ADMIT Obstetrics & Gynecology; ATTEND Obstetrics & Gynecology
PROC: 3E033VJ Introduction of Other Hormone into Peripheral Vein, Percutaneous Approach (ICD-10-PCS; principal; 2017-06-04)
PROC: 10D00Z1 Extraction of Products of Conception, Low, Open Approach (ICD-10-PCS; principal; 2017-06-04)
DX: O14.94 Unspecified pre-eclampsia, complicating childbirth (principal); O76 Abnormality in fetal heart rate and rhythm complicating labor and delivery; O62.8 Other abnormalities of forces of labor; O65.4 Obstructed labor due to fetopelvic disproportion, unspecified; Z37.0 Single live birth; R00.0 Tachycardia, unspecified; Z3A.37 37 weeks gestation of pregnancy

== ENCOUNTER → 2017-07-18 | Outpatient (CLI) | payer OTHER ==
[~2017-07-18] MED LIST changes: -CEPH500C PO
== END | disposition home or self-care (01) ==
LOC: C.PAPS 15:25
PROVIDERS: ATTEND Obstetrics & Gynecology
DX: Z39.2 Encounter for routine postpartum follow-up (principal)

== ENCOUNTER → 2017-09-23 | Outpatient (CLI) | payer OTHER ==
[~2017-09-23] MED LIST changes: +GADAVIST IV PRN
--- NOTE | 2017-09-23 12:43 | DIAGNOSTIC IMAGING REPORT ---
MRI OF THE BRAIN COMBO CLINICAL HISTORY: Anosmia. COMPARISON STUDY: No priors. TECHNIQUE: MRI of the brain was performed utilizing various T1 and T2-weighted sequences in the axial, sagittal, and coronal planes. Contrast-enhanced sequences were acquired following the administration of 7.5 cc of Gadavist. FINDINGS: Brain parenchyma: The brain parenchyma is normal in appearance. There is no hemorrhage or mass effect. There is no restricted diffusion to suggest acute ischemia. No enhancing mass lesion is identified on the postcontrast images. Zapata-white matter differentiation is preserved. No extra-axial fluid collection is seen. The cerebellar tonsils are normal in configuration. Ventricles, sulci, and cisterns: Normal in configuration. Pituitary and sella: Unremarkable. Intracranial vasculature: Normal flow voids are maintained at the skull base. Orbits: The bony orbits are grossly intact. Orbital contents are normal in appearance. Sinuses and mastoids: Trace mucosal thickening is seen in the right maxillary antrum. The remaining paranasal sinuses and the mastoid air cells are clear. Calvarium: Unremarkable. Cervical cord: Partially visualized cervical spinal cord is normal in morphology and signal intensity. IMPRESSION: No acute intracranial abnormality. Electronically signed by: Brent Garcia M.D. 09/23/2017 12:41 PM Dictated Date/Time: 09/23/2017 12:38 PM
== END | disposition home or self-care (01) ==
LOC: C.MRI 11:10
PROVIDERS: ATTEND Psychiatry & Neurology Neurology
DX: R43.0 Anosmia (principal)